=== PATIENT | female | born 1940 | race Caucasian/White ===

== ENCOUNTER 2018-03-11 13:45 | Emergency (ER) | payer MEDICARE, OTHER ==
[~2018-03-11] VITALS: Ht 167.6 cm; Wt 86.0 kg
[~2018-03-11 13:45] MED LIST: AMIO200T40 PO; ATOR20TA66 PO; CITA40TA22 PO; HYDR-4353 PO; IRON45TA7 PO; NYSPWD TP; TRAZ-218 PO; WARF-65 PO
[2018-03-11] MEDS ORDERED: ipratropium/albuterol 3ml nebule NEB ONE (14:10)
[2018-03-11] MEDS ORDERED: albuterol 2.5 MG/3 ML nebule NEB ONE (14:10)
[2018-03-11] MEDS ORDERED: normal saline 1000ML IV soln IVB ONE (14:10)
[2018-03-11 14:22] LABS: BASOPHILS % (AUTO) 0.4 % (0-1); EOSINOPHILS # (AUTO) 0.3 X10'3 (0-0.9); EOSINOPHILS % (AUTO) 3.1 % (0-6); HEMATOCRIT 33.7 % (35.0-45.0); LYMPHOCYTES # (AUTO) 2.7 X10'3 (1.1-4.8); LYMPHOCYTES % (AUTO) 29.5 % (21-51); MEAN CORPUSCULAR HEMOGLOBIN 33.6 PG (27.0-31.0); MEAN CORPUSCULAR HGB CONC 32.6 % (33.0-36.5); MEAN CORPUSCULAR VOLUME 102.8 FL (78-98); MEAN PLATELET VOLUME 7.8 FL (7.4-10.4); MONOCYTES # (AUTO) 0.5 X10'3 (0-0.9); MONOCYTES % (AUTO) 5.5 % (2-12); NEUTROPHILS # (AUTO) 5.7 X10'3 (1.8-7.7); NEUTROPHILS % (AUTO) 61.5 % (42-75); PLATELET COUNT 345 X10'3 (140-440); RED BLOOD COUNT 3.28 X10'6 (4.20-5.60); RED CELL DISTRIBUTION WIDTH 14.5 % (11.5-14.5); WHITE BLOOD COUNT 9.2 X10'3 (4.5-11.0)
[2018-03-11 14:38] LABS: ALANINE AMINOTRANSFERASE 12 U/L (12-78); ALBUMIN 2.8 G/DL (3.4-5.0); ALBUMIN/GLOBULIN RATIO 0.7 (1.1-1.5); ALKALINE PHOSPHATASE 77 IU/L (46-116); ANION GAP 13 (8-16); ASPARTATE AMINO TRANSFERASE 16 U/L (10-37); BILIRUBIN,TOTAL 0.3 MG/DL (0.1-1.0); BLOOD UREA NITROGEN 7 MG/DL (7-18); BUN/CREATININE RATIO 8.2 (6.6-38.0); CALCIUM 8.6 MG/DL (8.5-10.1); CHLORIDE 108 MMOL/L (99-107); CREATININE 0.85 MG/DL (0.40-0.90); GLUCOSE 112 MG/DL (70-104); SODIUM 143 MMOL/L (135-145); TOTAL CARBON DIOXIDE 22.3 MMOL/L (24-32); TOTAL PROTEIN 6.7 G/DL (6.4-8.2); eGFR 65 ML/MIN
[2018-03-11 14:48] LABS: POTASSIUM 3.3 MMOL/L (3.5-5.1)
[2018-03-11 14:54] LABS: PARTIAL THROMBOPLASTIN TIME 27 SECONDS (22-32); PROTHROMBIN TIME 9.8 SECONDS (9.0-12.0)
[2018-03-11] MEDS ORDERED: HYDROcodone/acetaminophen 10/325mg tab PO ONE (15:20)
[2018-03-11] MEDS ORDERED: iohexol 350MG/ML 100ml bottle IV ONE (15:26)
[2018-03-11] MEDS ORDERED: LORazepam 2 mg/ml vial IV ONE (16:10)
[2018-03-11 19:15] VITALS: BP 127/95
== END 2018-03-11 19:17 | disposition home or self-care (01) ==
LOC: ER 13:46
DX: J44.9 Chronic obstructive pulmonary disease, unspecified (principal); R91.1 Solitary pulmonary nodule; I48.91 Unspecified atrial fibrillation; G89.29 Other chronic pain; Z86.73 Personal history of transient ischemic attack (TIA), and cerebral infarction without residual deficits; Z91.011 Allergy to milk products; Z79.899 Other long term (current) drug therapy; Z98.890 Other specified postprocedural states
CPT/HCPCS: 36415; 71045; 71275; 80053; 83880; 85025; 85610; 85730; 93005; 94640; 94760; 96374; 99284; J2060; J7030; Q9967

== ENCOUNTER 2018-06-09 05:49 | Emergency (ER) | payer MEDICARE ==
[~2018-06-09] VITALS: Ht 162.6 cm; Wt 72.7 kg
--- NOTE | 2018-06-09 05:58 | NUR ---
Pt is very anxious. When you visit with her she calms down. Gave the patient several warmed blankets as she waits for md. She has no c/o anything other than that.
[2018-06-09] MEDS ORDERED: ziprasidone IM 20mg inj **IM only IM ONE (06:10)
[2018-06-09] MEDS ORDERED: HYDROcodone/acetaminophen 5mg/325mg tablet PO ONE (07:15)
--- NOTE | 2018-06-09 07:41 | NUR ---
CALLED PTS KINGSLEY LANDEROS, KINGSLEY STATES HE SHOULD BE HERE "SHORTLY" TO DRIVE PT HOME.
[2018-06-09 08:08] VITALS: BP 156/73
== END 2018-06-09 08:11 | disposition home or self-care (01) ==
LOC: ER 05:50
DX: J44.9 Chronic obstructive pulmonary disease, unspecified (principal); F41.9 Anxiety disorder, unspecified; I48.91 Unspecified atrial fibrillation; G89.29 Other chronic pain; Z98.890 Other specified postprocedural states; Z86.73 Personal history of transient ischemic attack (TIA), and cerebral infarction without residual deficits; Z91.011 Allergy to milk products; Z79.01 Long term (current) use of anticoagulants; Z79.899 Other long term (current) drug therapy
CPT/HCPCS: 71045; 93005; 96372; 99283; J3486

== ENCOUNTER 2018-08-14 17:20 | Emergency (ER) | payer MEDICARE ==
[~2018-08-14] VITALS: Ht 167.6 cm; Wt 75.0 kg
[~2018-08-14 17:20] MED LIST changes: -TRAZ-218 PO; +TRAZ-251 PO
[2018-08-14] MEDS ORDERED: HYDROcodone/acetaminophen 10/325mg tab PO ONE (18:05)
--- NOTE | 2018-08-14 18:13 | NUR ---
adendum to skin assessment, scab noted on left ear, pt appears to be dirty with foul odor and hair oily and unkept.
[2018-08-14 18:16] LABS: BASOPHILS # (AUTO) 0.1 X10'3 (0-0.2); EOSINOPHILS # (AUTO) 0.4 X10'3 (0-0.9); EOSINOPHILS % (AUTO) 3.5 % (0-6); HEMATOCRIT 36.7 % (35.0-45.0); HEMOGLOBIN 11.9 g/dl (12.0-16.0); LYMPHOCYTES # (AUTO) 2.2 X10'3 (1.1-4.8); LYMPHOCYTES % (AUTO) 19.3 % (21-51); MEAN CORPUSCULAR HEMOGLOBIN 35.3 PG (27.0-31.0); MEAN CORPUSCULAR HGB CONC 32.3 g/dL (33.0-36.5); MEAN CORPUSCULAR VOLUME 109.2 FL (78-98); MEAN PLATELET VOLUME 8.2 FL (7.4-10.4); MONOCYTES # (AUTO) 0.7 X10'3 (0-0.9); MONOCYTES % (AUTO) 6.3 % (2-12); NEUTROPHILS # (AUTO) 7.8 X10'3 (1.8-7.7); NEUTROPHILS % (AUTO) 69.9 % (42-75); PLATELET COUNT 296 X10'3 (140-440); RED BLOOD COUNT 3.36 X10'6 (4.20-5.60); RED CELL DISTRIBUTION WIDTH 15.7 % (11.5-14.5); WHITE BLOOD COUNT 11.2 X10'3 (4.5-11.0)
[2018-08-14 18:26] LABS: ALANINE AMINOTRANSFERASE 14 U/L (12-78); ALBUMIN 2.6 G/DL (3.4-5.0); ALBUMIN/GLOBULIN RATIO 0.6 (1.1-1.5); ALKALINE PHOSPHATASE 94 IU/L (46-116); ANION GAP 7 (8-16); ASPARTATE AMINO TRANSFERASE 17 U/L (10-37); BILIRUBIN,TOTAL 0.8 MG/DL (0.1-1.0); BLOOD UREA NITROGEN 12 MG/DL (7-18); BUN/CREATININE RATIO 12.9 (6.6-38.0); CALCIUM 8.7 MG/DL (8.5-10.1); CHLORIDE 109 MMOL/L (99-107); CREATININE 0.93 MG/DL (0.40-0.90); GLUCOSE 101 MG/DL (70-104); POTASSIUM 3.3 MMOL/L (3.5-5.1); SODIUM 141 MMOL/L (135-145); TOTAL CARBON DIOXIDE 25.4 MMOL/L (24-32); TOTAL PROTEIN 6.7 G/DL (6.4-8.2); eGFR 58 ML/MIN
[2018-08-14 18:29] LABS: PARTIAL THROMBOPLASTIN TIME 26 SECONDS (22-32)
--- NOTE | 2018-08-14 20:43 | NUR ---
IN AND OUT CATH DONE WITH STERILE TECHNIQUE, PT MAGALI WELL, SAMPLE SENT TO LAB
[2018-08-14 21:13] LABS: CLARITY,URINE CLOUDY (Clear); COLOR,URINE YELLOW (Yellow); GLUCOSE, URINE NEGATIVE (Neg); KETONES,URINE NEGATIVE (Neg); LEUKOCYTE ESTERASE ,URINE TRACE (Neg); NITRITES, URINE NEGATIVE (Neg); OCCULT BLOOD,URINE LARGE (Neg); PROTEIN,URINE NEGATIVE (Neg)
[2018-08-14 21:24] LABS: BACTERIA,URINE 4+ /HPF (Neg); RBC,URINE 0-2 /HPF (0-2); SQUAMOUS EPITHELIAL CELL,UR FEW /LPF (FEW); UA COLLECTION TYPE STRAIGHT CATH
[2018-08-14] MEDS ORDERED: NYST30CR2 TP (21:31)
[2018-08-14 22:31] VITALS: BP 118/74
--- NOTE | 2018-08-19 10:11 | NUR ---
[facility] CALLED FOR NEW PRESCRIPTION: MACROBID [id number] PO BID X 7 DAYS. PT WAS CALLED AND MESSAGE LEFT TO INFORM THAT RX WAS CALLED IN FOR HER.
== END 2018-08-14 22:35 | disposition home or self-care (01) ==
LOC: ER 17:21
DX: L89.319 Pressure ulcer of right buttock, unspecified stage (principal); B36.9 Superficial mycosis, unspecified; R10.9 Unspecified abdominal pain; I48.91 Unspecified atrial fibrillation; J44.9 Chronic obstructive pulmonary disease, unspecified; G89.29 Other chronic pain; Z86.73 Personal history of transient ischemic attack (TIA), and cerebral infarction without residual deficits; Z91.011 Allergy to milk products; W06.XXXA Fall from bed, initial encounter; Y93.89 Activity, other specified; Y92.89 Other specified places as the place of occurrence of the external cause; Y99.8 Other external cause status
CPT/HCPCS: 36415; 70450; 71045; 72125; 74176; 80053; 81001; 83735; 85025; 85610; 85730; 87077; 87088; 87186; 93005; 99284; P9612